=== PATIENT | male | born 1975 | race Caucasian/White ===

== ENCOUNTER 2022-07-02 15:22 | Emergency (ER) | payer OTHER ==
[2022-07-02 15:39] VITALS: BP 117/77; PULSE 86; RESP 20; TEMP 97.7; BMI 28.7
[2022-07-02] MEDS ORDERED: DIPHTH,PERTUSS(ACELL),TET 0.5 ML DISP.SYRIN IM ONE ×2 (15:47→15:53)
[2022-07-02] MEDS ORDERED: LIDOCAINE HCL 2% (50ML VIAL) INF ONE (15:47)
[2022-07-02] MEDS ORDERED: LIDOCAINE HCL 2% (20ML MULTI-DOSE VIAL) ONE (15:53)
== END 2022-07-02 17:14 | disposition home or self-care (01) ==
LOC: FER 15:22
PROC: 0H9GXZZ Drainage of Left Hand Skin, External Approach (ICD-10-PCS; principal; 2022-07-02)
PROC: 3E0234Z Introduction of Serum, Toxoid and Vaccine into Muscle, Percutaneous Approach (ICD-10-PCS; 2022-07-02)
DX: L08.89 Other specified local infections of the skin and subcutaneous tissue (principal)
CPT/HCPCS: 73140-TC-LT-FY; 90715; 99283-25

== ENCOUNTER 2023-07-26 13:00 | Emergency (ER) | payer OTHER ==
[2023-07-26 13:20] VITALS: BP 113/73; PULSE 88; RESP 16; TEMP 98.6; BMI 32.3
[2023-07-26] MEDS ORDERED: FAMOTIDINE 20 MG/50 ML IVPB 20 MG/50 ML MG IVPB ONE (13:31)
[2023-07-26] MEDS ORDERED: ONDANSETRON 4 MG/2 ML VIAL ONE (13:31)
[2023-07-26] MEDS ORDERED: ACETAMINOPHEN INJECTION 100 ML IVPB ONE (13:31)
[2023-07-26] MEDS: SODIUM CHLORIDE 1,000 ML IV STA (13:45)
[2023-07-26] MEDS: ONDANSETRON 4 MG/2 ML VIAL IVPUSH ONE (13:45)
[2023-07-26] MEDS: ACETAMINOPHEN 1000 MG/100 ML BAG IVPB ONE (13:58)
[2023-07-26 14:07] LABS: HEMATOCRIT 52.6 % (35.4-49); HEMOGLOBIN 17.9 G/dL (11.7-16.9); MCH 30.2 pg (25.7-33.7); MEAN CELL VOLUME 88.9 fl (80-96); MEAN PLT VOLUME 7.3 fl (7.5-11.1); PLATELET COUNT 174.4 10^3/uL (134-434); RBC 5.92 10^6/uL (4.00-5.60); RDW 14.6 % (11.9-15.9); WHITE BLOOD COUNT 8.5 10^3/uL (4.0-10.8)
[2023-07-26 14:11] LABS: PLATELET ESTIMATE ADEQUATE
[2023-07-26 14:15] LABS: ALBUMIN 4.3 g/dl (3.4-5.0); BILIRUBIN,TOTAL 0.7 mg/dl (0.2-1); CALCIUM 9.9 mg/dl (8.5-10.1); CREATININE 1.1 mg/dl (0.6-1.3); POTASSIUM 4.3 mmol/L (3.5-5.1); TOT PROT 6.2 g/dl (6.4-8.2)
[2023-07-26] MEDS: FAMOTIDINE 20 MG/50 ML IVPB 20 MG/50 ML MG IVPB ONE (14:16)
== END 2023-07-26 15:18 | disposition home or self-care (01) ==
LOC: FER 13:00
PROC: 3E033GC Introduction of Other Therapeutic Substance into Peripheral Vein, Percutaneous Approach (ICD-10-PCS; principal; 2023-07-26)
PROC: 3E033GC Introduction of Other Therapeutic Substance into Peripheral Vein, Percutaneous Approach (ICD-10-PCS; 2023-07-26)
PROC: 3E033NZ Introduction of Analgesics, Hypnotics, Sedatives into Peripheral Vein, Percutaneous Approach (ICD-10-PCS; 2023-07-26)
DX: R11.2 Nausea with vomiting, unspecified (principal); R10.13 Epigastric pain; R10.12 Left upper quadrant pain
CPT/HCPCS: 36415; 80053; 83690; 84484; 85027; 93005; 99284-25; J0131